=== PATIENT | male | born 1975 | race American Indian/Alaskan Native ===

== ENCOUNTER 2017-10-26 05:45 | Day surgery (SDC) | payer BC, OTHER ==
[~2017-10-26] VITALS: Ht 188 cm; Wt 136.1 kg
[~2017-10-26 05:45] MED LIST: AMLODIPINE BESYL5 MG PO; ASPIR-LOW81 MG PO; GLIPIZIDE XL10 MG PO; JANUVIA100 MG PO; LIPITOR20 MG PO; LISINOPRIL40 MG PO; METFORMIN HCL1000 MG PO; NAPROXEN250 MG PO; VITAMIN D250000 UNIT PO
--- NOTE | 2017-10-26 07:29 | NUR ---
10/26/17 0729 ChanceKayleigh 0718-PATIENTS BILATERAL MANIPULATION TO SHOULDERS COMPLETED. PATIENT ON 6L MASK O2 SAT 100% RN HELPING TO MAINTAIN OPEN AIRWAY. PATIENT NONAROUSABLE. 2 BANDAIDS TO BILATERAL SHOULDERS. 0727-PATIENT AROUSABLE. WEANED TO RA O2 SAT 100% PATIENT REPORTS " A LITTLE DISCOMFORT" PATIENT ABLE TO MOVE RIGHT HAND HAS DIFFICULTY RAISING RIGHT ARM BLOCK WAS DONE. REPORTS "HEAVY" PATIENT DOZES BACK TO SLEEP. RR EVEN.
--- NOTE | 2017-10-26 09:34 | OR ---
[facility] [address] [facility] [place], [place] [address] Signed DATE OF OPERATION: 10/26/2017 SURGEON: Herber Arredondo MD PREOPERATIVE DIAGNOSIS: Bilateral frozen shoulders. POSTOPERATIVE DIAGNOSIS: Bilateral frozen shoulders. PROCEDURE: Bilateral shoulder manipulations and injection. ANESTHESIA: General. SPECIMENS AND COMPLICATIONS: IV sedation in Day Surgery. WHAT WAS DONE: The patient was taken to the operating room. After anesthesia was induced and the patient sedated with propofol and a right-sided supraclavicular block performed, the right arm was gently manipulated into flexion and abduction and external rotation. There was a rather significant sound of releasing tissues as the shoulder was manipulated and he quickly went into full range of motion. A documentary photograph was taken and the shoulder was then prepped and injected with 8 mL of 1% plain Xylocaine and 2 mL of Depo-Medrol. He then was redosed with propofol and the left shoulder was similarly manipulated into flexion and abduction and external rotation again with a rather resounding sound of releasing scar tissue and adhesions. Again, we regained full range of motion and a documentary photograph was taken. The shoulder was then prepped and the left shoulder was also injected with 8 mL of 1% plain Xylocaine and 2 mL of Depo-Medrol. Band-Aid was applied and he was awakened. He was left in Day Surgery where he was in stable condition. Herber Arredondo MD Electronically Signed By: HERBER ARREDONDO MD 10/26/17 0934 PATIENT NAME: STEVE TORRES OPERATIVE REPORT DATE OF : 71 REPORT #: [id number] PHYSICIAN: HERBER ARREDONDO MD PCP: LEONIDES YOUNGER MD REPORT IS CONFIDENTIAL AND NOT TO BE RELEASED WITHOUT AUTHORIZATION [facility] [address] [place] [id number] Signed [facility] /[id number] Copies: ~ Electronically Signed By: HERBER ARREDONDO MD 10/26/17 0934 PATIENT NAME: STEVE TORRES OPERATIVE REPORT DATE OF : 71 REPORT #: [id number] PHYSICIAN: HERBER ARREDONDO MD PCP: LEONIDES YOUNGER MD REPORT IS CONFIDENTIAL AND NOT TO BE RELEASED WITHOUT AUTHORIZATION
== END 2017-10-26 08:45 | disposition home or self-care (01) ==
LOC: OPS 05:45 → DS 05:45 → OPS 06:45 → DS 07:30 → OPS 07:30
PROVIDERS: Orthopaedic Surgery
PROC: 0RNJXZZ Release Right Shoulder Joint, External Approach (ICD-10-PCS; 2017-10-26)
PROC: 0RNKXZZ Release Left Shoulder Joint, External Approach (ICD-10-PCS; principal; 2017-10-26 06:45)
DX: M75.01 Adhesive capsulitis of right shoulder (principal); M75.02 Adhesive capsulitis of left shoulder; E11.9 Type 2 diabetes mellitus without complications; I10 Essential (primary) hypertension; F17.210 Nicotine dependence, cigarettes, uncomplicated; E66.9 Obesity, unspecified; Z88.0 Allergy status to penicillin; Z79.1 Long term (current) use of non-steroidal anti-inflammatories (NSAID); Z79.84 Long term (current) use of oral hypoglycemic drugs; Z79.82 Long term (current) use of aspirin; Z79.899 Other long term (current) drug therapy; Z68.38 Body mass index [BMI] 38.0-38.9, adult
CPT/HCPCS: 01620; 64415; 76942; J1100; J2250; J2704; J2795; J3010; J3301; J7120

== ENCOUNTER 2019-12-18 15:01 | Inpatient (IN) | payer BC, OTHER ==
[~2019-12-18] VITALS: Ht 188 cm; Wt 137.0 kg
--- OUTSIDE RECORDS SUMMARY | ~2019-12-18 | XMS | Encounter Summary ---
Demographics + + + | Address | [address] | | | [place] [address] | + + + | Home Phone | | + + + | Preferred Language | Unknown | + + + | Marital Status | | + + + | Temple Affiliation | Unknown | + + + | Race | Unknown | + + + | Ethnic Group | Unknown | + + + Author + + + | Author | [facility] | | | and [place] | + + + | Organization | [facility] | | | and [place] | + + + | Address | Unknown | + + + | Phone | Unavailable | + + + Support + + + + + | Name | Relationship | Address | Phone | + + + + + | Zofia Galloway | ECON | [address] | | | | | [place] | | | | | [address] | | + + + + + | Bernarda Galloway | ECON | Unknown | | + + + + + Care Team Providers + +------+ + | Care Piano Builder Name | Role | Phone | + +------+ + | Mateo Duarte DO | PCP | | + +------+ + Encounter Details +--------+ + + + + | Date | Type | Department | Care Team | Description | +--------+ + + + + | 08/10/ | Orders Only | [facility] [place] | Gilma Helms W, | CKD (chronic kidney | | 2020 | | NEPHROLOGY [address] | [address] | disease) stage 2, | | | | [address] | [address] [place] | GFR 60-89 ml/min | | | | [place], [place] | [place] [address] | (Primary Dx); | | | | [address] | [phone] | Proteinuria, | | | | [phone] | | unspecified type | +--------+ + + + + Social History + + + +--------+ + | Tobacco Use | Types | Packs/Day | Years | Date | | | | | Used | | + + + +--------+ + | Current Every Day | Cigarettes | 0.75 | | Started: 1998 | | Smoker | | | | | + + + +--------+ + + +---+---+---+ | Smokeless Tobacco: | | | | | Never Used | | | | + +---+---+---+ + + + | Sex Assigned at | Date Recorded | | | | + + + | Not on file | | + + + + + + + | Job Start Date | Occupation | Industry | + + + + | Not on file | Not on file | Not on file | + + + + + + + + | Travel History | Travel Start | Travel End | + + + + + + | No recent travel history available. | + + documented as of this encounter Progress Notes Mandy Woodruff RN - 08/10/2019 10:11 AM PSTLabs for upcoming nephrology appointment sent to: [facility] signed by Mandy Woodruff RN at 08/10/2019 10:13 AM PSTdocumented in this encounter Plan of Treatment +--------+---------+ + + + | Date | Type | Specialty | Care Team | Description | +--------+---------+ + + + | 01/08/ | Office | Nephrology | Gilma Helms, | | 2019 | Visit | | MD Brandon Bermeo | | | | | | [address] [place] | | | | | | [place] [address] | | | | | | [phone] | | | | | | | | +--------+---------+ + + + + +------+--------+ + + | Name | Type | Priori | Associated Diagnoses | Order Schedule | | | | ty | | | + +------+--------+ + + | Renal Function Panel | Lab | Routin | CKD (chronic | Expected: | | | | e | kidney disease) | 08/29/2019, Expires: | | | | | stage 2, GFR 60-89 | 08/10/2020 | | | | | ml/min Proteinuria, | | | | | | unspecified type | | + +------+--------+ + + | Urinalysis With | Lab | Routin | CKD (chronic | Expected: | | Microscopic | | e | kidney disease) | 08/29/2019, Expires: | | | | | stage 2, GFR 60-89 | 08/10/2020 | | | | | ml/min Proteinuria, | | | | | | unspecified type | | + +------+--------+ + + | Protein/Creatinine | Lab | Routin | CKD (chronic | Expected: | | Ratio, Urine | | e | kidney disease) | 08/29/2019, Expires: | | | | | stage 2, GFR 60-89 | 08/10/2020 | | | | | ml/min Proteinuria, | | | | | | unspecified type | | + +------+--------+ + + documented as of this encounter Visit Diagnoses + + | Diagnosis | + + | CKD (chronic kidney disease) stage 2, GFR 60-89 ml/min - Primary Chronic kidney | | disease, Stage II (mild) | + + | Proteinuria, unspecified type | + + documented in this encounter"
--- OUTSIDE RECORDS SUMMARY | ~2019-12-18 | XMS | Encounter Summary ---
Demographics + + + | Address | [address] | | | [place] [address] | + + + | Home Phone | | + + + | Preferred Language | Unknown | + + + | Marital Status | | + + + | Mormon Affiliation | Unknown | + + + | Race | Unknown | + + + | Ethnic Group | Unknown | + + + Author + + + | Author | [facility] | | | and [place] | + + + | Organization | [facility] | | | and [place] | + + + | Address | Unknown | + + + | Phone | Unavailable | + + + Support + + + + + | Name | Relationship | Address | Phone | + + + + + | Zofia Galloway | ECON | [address] | | | | | [place] | | | | | [address] | | + + + + + | Bernarda Galloway | ECON | Unknown | | + + + + + Care Team Providers + +------+ + | Care Surveillance Operator Name | Role | Phone | + +------+ + PCP | Unavailable | + +------+ + Encounter Details +--------+ + + + + | Date | Type | Department | Care Team | Description | +--------+ + + + + | 02/10/ | Hospital | [facility] | | | | 1998 | Encounter | MED CTR GENERIC IP | | | | | | CONV DEPT [address] | | | | | | [place], | | | | | | [place] [address] | | | | | | [phone] | | | +--------+ + + + + Social History + +-------+ +--------+------+ | Tobacco Use | Types | Packs/Day | Years | Date | | | | | Used | | + +-------+ +--------+------+ | Never Assessed | | | | | + +-------+ +--------+------+ + + + | Sex Assigned at [...] + + documented as of this encounter Plan of Treatment +--------+---------+ + + + | Date | Type | Specialty | Care Team | Description | +--------+---------+ + + + | 01/08/ | Office | Nephrology | Gilma Helms, | | | 2019 | Visit | | MD Brandon Bermeo | | | | | | [address] [place] | | | | | | [place] [address] | | | | | | [phone] | | | | | | | | +--------+---------+ + + + documented as of this encounter Visit Diagnoses Not on filedocumented in this encounter"
--- OUTSIDE RECORDS SUMMARY | ~2019-12-18 | XMS | Encounter Summary ---
Demographics + + + | Address | [address] | | | [place] [address] | + + + | Home Phone | | + + + | Preferred Language | Unknown | + + + | Marital Status | | + + + | Sikhism Affiliation | Unknown | + + + | Race | Unknown | + + + | Ethnic Group | Unknown | + + + Author + + + | Author | [facility] | | | and [place] | + + + | Organization | [facility] | | | and [place] | + + + | Address | Unknown | + + + | Phone | Unavailable | + + + Support + + + + + | Name | Relationship | Address | Phone | + + + + + | Zofia Galloway | ECON | [address] | | | | | [place] | | | | | [address] | | + + + + + | Bernarda Galloway | ECON | Unknown | | + + + + + Care Team Providers + +------+ + | Care Adjunct Mathematics Instructor Name | Role | Phone | + +------+ + | Mateo Duarte DO | PCP | | + +------+ + Encounter Details +--------+ + + + + | Date | Type | Department | Care Team | Description | +--------+ + + + + | 08/15/ | Abstract | [facility] [place] | Gilma Helms W, | Proteinuria, | | 2018 | | NEPHROLOGY [address] | MD [address] | unspecified type | | | | [address] | [address] [place] | (Primary Dx); | | | | [place], [place] | [place] [address] | Essential | | | | [address] | [phone] | hypertension; Type 2 | | | | [phone] | | diabetes mellitus | | | | | | with | | | | | | microalbuminuria, | | | | | | with long-term | | | | | | current use of | | | | | | insulin (HCC) | +--------+ + + + + Social History + +-------+ +--------+------+ | Tobacco Use | Types | Packs/Day | Years | Date | | | | | Used | | + +-------+ +--------+------+ | Current Every Day | | | | | | Smoker | | | | | + +-------+ +--------+------+ + +---+---+---+ | Smokeless Tobacco: | | [...] encounter Progress Notes Mandy Woodruff RN - 08/15/2018 3:39 PM PSTLabs for upcoming nephrology appointment sent to: Needs to be [facility] to [facility] by Mandy Woodruff RN at 0 08/15/2018 3:47 PM PSTdocumented in this encounter Plan of Treatment +--------+---------+ + + + | Date | Type | Specialty | Care Team | Description | +--------+---------+ + + + | 01/08/ | Office | Nephrology | Gilma Helms, | | | 2019 | Visit | | MD Brandon Bermeo | | | | | | [address] | | | | | | [place] [address] | | | | | | [phone] | | | | | | | | +--------+---------+ + + + documented as of this encounter Visit Diagnoses + + | Diagnosis | + + | Proteinuria, unspecified type - Primary | + + | Essential hypertension Unspecified essential hypertension | + + | Type 2 diabetes mellitus with microalbuminuria, with long-term current use of insulin | | (HCC) | + + documented in this encounter"
--- OUTSIDE RECORDS SUMMARY | ~2019-12-18 | XMS | Encounter Summary ---
Demographics + + + | Address | [address] | | | [place] [address] | + + + | Home Phone | | + + + | Preferred Language | Unknown | + + + | Marital Status | | + + + | Taoist Affiliation | Unknown | + + + | Race | Unknown | + + + | Ethnic Group | Unknown | + + + Author + + + | Author | [facility] | | | and [place] | + + + | Organization | [facility] | | | and [place] | + + + | Address | Unknown | + + + | Phone | Unavailable | + + + Support + + + + + | Name | Relationship | Address | Phone | + + + + + | Zofia Galloway | ECON | [address] | | | | | [place] | | | | | [address] | | + + + + + | Bernarda Galloway | ECON | Unknown | | + + + + + Care Team Providers + +------+ + | Care Coal Dumping Equipment Operator Name | Role | Phone | + +------+ + | Mateo Duarte DO | PCP | | + +------+ + Encounter Details +--------+ + + + + | Date | Type | Department | Care Team | Description | +--------+ + + + + | 08/04/ | Abstract | [facility] [place] | Gilma Helms W, | | | 2018 | | NEPHROLOGY [address] | MD [address] | | | | | [address] | [address] [place] | | | | | [place], [place] | [place] [address] | | | | | [address] | [phone] | | | | | [phone] | | | +--------+ + + + [...] | | 2019 | Visit | | [address] | | | | | | [address] [place] | | | | | | [place] [address] | | | | | | [phone] | | | | | | | | +--------+---------+ + + + documented as of this encounter Procedures + +--------+ + + + | Procedure Name | Priori | Date/Time | Associated Diagnosis | Comments | | | ty | | | | + +--------+ + + + | EXTERNAL LAB: BUN | Routin | 07/15/2018 | | Results for this | | | e | | | procedure are in the | | | | | | results section. | + +--------+ + + + | EXTERNAL LAB: | Routin | 07/15/2018 | | Results for this | | GLUCOSE | e | | | procedure are in the | | | | | | results section. | + +--------+ + + + | EXTERNAL LAB: ALT | Routin | 07/15/2018 | | Results for this | | | e | | | procedure are in the | | | | | | results section. | + +--------+ + + + | EXTERNAL LAB: AST | Routin | 07/15/2018 | | Results for this | | | e | | | procedure are in the | | | | | | results section. | + +--------+ + + + | EXTERNAL LAB: | Routin | 07/15/2018 | | Results for this | | ALKALINE PHOSPHATASE | e | | | procedure are in the | | | | | | results section. | + +--------+ + + + | EXTERNAL LAB: | Routin | 07/15/2018 | | Results for this | | BILIRUBIN, TOTAL | e | | | procedure are in the | | | | | | results section. | + +--------+ + + + | EXTERNAL LAB: | Routin | 07/15/2018 | | Results for this | | ALBUMIN | e | | | procedure are in the | | | | | | results section. | + +--------+ + + + | EXTERNAL LAB: | Routin | 07/15/2018 | | Results for this | | PROTEIN, TOTAL | e | | | procedure are in the | | | | | | results section. | + +--------+ + + + | EXTERNAL LAB: | Routin | 07/15/2018 | | Results for this | | CALCIUM | e | | | procedure are in the | | | | | | results section. | + +--------+ + + + | EXTERNAL LAB: CARBON | Routin | 07/15/2018 | | Results for this | | DIOXIDE | e | | | procedure are in the | | | | | | results section. | + +--------+ + + + | EXTERNAL LAB: | Routin | 07/15/2018 | | Results for this | | CHLORIDE | e | | | procedure are in the | | | | | | results section. | + +--------+ + + + | EXTERNAL LAB: | Routin | 07/15/2018 | | Results for this | | POTASSIUM | e | | | procedure are in the | | | | | | results section. | + +--------+ + + + | EXTERNAL LAB: SODIUM | Routin | 07/15/2018 | | Results for this | | | e | | | procedure are in the | | | | | | results section. | + +--------+ + + + | EXTERNAL LAB: | Routin | 07/15/2018 | | Results for this | | VITAMIN D, | e | | | procedure are in the | | 25-HYDROXY | | | | results section. | + +--------+ + + + | EXTERNAL LAB: | Routin | 07/15/2018 | | Results for this | | URINALYSIS | e | | | procedure are in the | | | | | | results section. | + +--------+ + + + | EXTERNAL LAB: CBC | Routin | 07/15/2018 | | Results for this | | | e | | | procedure are in the | | | | | | results section. | + +--------+ + + + | EXTERNAL LAB: TSH | Routin | 07/15/2018 | | Results for this | | | e | | | procedure are in the | | | | | | results section. | + +--------+ + + + | EXTERNAL LAB: EGFR | Routin | 07/15/2018 | | Results for this | | | e | | | procedure are in the | | | | | | results section. | + +--------+ + + + | EXTERNAL LAB: | Routin | 07/15/2018 | | Results for this | | CREATININE | e | | | procedure are in the | | | | | | results section. | + +--------+ + + + | HEMOGLOBIN A1C | Routin | 07/15/2018 | | Results for this | | | e | | | procedure are in the | | | | | | results section. | + +--------+ + + + documented in this encounter Results External Lab: Urinalysis (07/15/2018) + + + + + + | Component | Value | Ref Range | Performed | Pathologist | | | | | At | Signature | + + + + + + | UA Blood, | 50 | | | | | External | | | | | + + + + + + | UA Glucose, | 1,000 | | | | | External | | | | | + + + + + + | UA Ketones, | 1+ | | | | | External | | | | | + + + + + + | UA Ph, | 5.0 | | | | | External | | | | | + + + + + + | UA | 500 | | | | | Proteins, | | | | | | External | | | | | + + + + + + | UA RBC, | 3 | | | | | External | | | | | + + + + + + | UA Specific | 1.029 | | | | | [place], | | | | | | External | | | | | + + + + + + | UA | negative | | | | | Leukocyte | | | | | | Esterase, | | | | | | External | | | | | + + + + + + Hemoglobin A1C (07/15/2018) + +-------+ + + + | Component | Value | Ref Range | Performed | Pathologist | | | | | At | Signature | + +-------+ + + + | Hemoglobin | 9.5 | % | | | | A1c | | | | | + +-------+ + + + + + | Specimen | + + | Blood | + + External Lab: BUN (07/15/2018) + +-------+ + + + | Component | Value | Ref Range | Performed | Pathologist | | | | | At | Signature | + +-------+ + + + | BUN, | 4 | | | | | External | | | | | + +-------+ + + + External Lab: Glucose (07/15/2018) + +-------+ + + + | Component | Value | Ref Range | Performed | Pathologist | | | | | At | Signature | + +-------+ + + + | Glucose, | 202 | | | | | External | | | | | + +-------+ + + + External Lab: ALT (07/15/2018) + +-------+ + + + | Component | Value | Ref Range | Performed | Pathologist | | | | | At | Signature | + +-------+ + + + | ALT, | 42 | | | | | External | | | | | + +-------+ + + + External Lab: AST (07/15/2018) + +-------+ + + + | Component | Value | Ref Range | Performed | Pathologist | | | | | At | Signature | + +-------+ + + + | AST, | 32 | | | | | External | | | | | + +-------+ + + + External Lab: Alkaline Phosphatase (07/15/2018) + +-------+ + + + | Component | Value | Ref Range | Performed | Pathologist | | | | | At | Signature | + +-------+ + + + | ALP, | 97 | | | | | External | | | | | + +-------+ + + + External Lab: Bilirubin, Total (07/15/2018) + +-------+ + + + | Component | Value | Ref Range | Performed | Pathologist | | | | | At | Signature | + +-------+ + + + | Bilirubin, | 0.5 | | | | | Total, | | | | | | External | | | | | + +-------+ + + + External Lab: Albumin (07/15/2018) + +-------+ + + + | Component | Value | Ref Range | Performed | Pathologist | | | | | At | Signature | + +-------+ + + + | Albumin, | 4.0 | | | | | External | | | | | + +-------+ + + + External Lab: Protein, Total (07/15/2018) + +-------+ + + + | Component | Value | Ref Range | Performed | Pathologist | | | | | At | Signature | + +-------+ + + + | Protein, | 7.0 | | | | | Total, | | | | | | External | | | | | + +-------+ + + + External Lab: Calcium (07/15/2018) + +-------+ + + + | Component | Value | Ref Range | Performed | Pathologist | | | | | At | Signature | + +-------+ + + + | Calcium, | 9.1 | | | | | External | | | | | + +-------+ + + + External Lab: Carbon Dioxide (07/15/2018) + +-------+ + + + | Component | Value | Ref Range | Performed | Pathologist | | | | | At | Signature | + +-------+ + + + | Carbon | 27 | | | | | Dioxide, | | | | | | External | | | | | + +-------+ + + + External Lab: Chloride (07/15/2018) + +-------+ + + + | Component | Value | Ref Range | Performed | Pathologist | | | | | At | Signature | + +-------+ + + + | Chloride, | 98 | | | | | External | | | | | + +-------+ + + + External Lab: Potassium (07/15/2018) + +-------+ + + + | Component | Value | Ref Range | Performed | Pathologist | | | | | At | Signature | + +-------+ + + + | Potassium, | 4.1 | | | | | External | | | | | + +-------+ + + + External Lab: Sodium (07/15/2018) + +-------+ + + + | Component | Value | Ref Range | Performed | Pathologist | | | | | At | Signature | + +-------+ + + + | Sodium, | 139 | | | | | External | | | | | + +-------+ + + + External Lab: Vitamin D, 25-Hydroxy (07/15/2018) + +-------+ + + + | Component | Value | Ref Range | Performed | Pathologist | | | | | At | Signature | + +-------+ + + + | Vitamin D, | 31.6 | | | | | 25-Hydroxy, | | | | | | External | | | | | + +-------+ + + + + + | Specimen | + + | Blood | + + External Lab: CBC (07/15/2018) + +-------+ + + + | Component | Value | Ref Range | Performed | Pathologist | | | | | At | Signature | + +-------+ + + + | WBC, | 11.29 | | | | | External | | | | | + +-------+ + + + | HGB, | 15.83 | | | | | External | | | | | + +-------+ + + + | HCT, | 45.32 | | | | | External | | | | | + +-------+ + + + | PLT, | 240 | | | | | External | | | | | + +-------+ + + + | RBC, | 4.89 | | | | | External | | | | | + +-------+ + + + | MCV, | 93 | | | | | External | | | | | + +-------+ + + + | RDW, | 13.39 | | | | | External | | | | | + +-------+ + + + External Lab: [facility] (07/15/2018) + +-------+ + + + | Component | Value | Ref Range | Performed | Pathologist | | | | | At | Signature | + +-------+ + + + | TSH, | 0.05 | | | | | External | | | | | + +-------+ + + + + + | Specimen | + + | Blood | + + External Lab: eGFR (07/15/2018) + +-------+ + + + | Component | Value | Ref Range | Performed | Pathologist | | | | | At | Signature | + +-------+ + + + | eGFR, | >60 | | | | | External | | | | | + +-------+ + + + + + | Specimen | + + | Blood | + + External Lab: Creatinine (07/15/2018) + +-------+ + + + | Component | Value | Ref Range | Performed | Pathologist | | | | | At | Signature | + +-------+ + + + | Creatinine, | 0.80 | | | | | External | | | | | + +-------+ + + + + + | Specimen | + + | Blood | + + documented in this encounter Visit Diagnoses Not on filedocumented in this encounter"
--- OUTSIDE RECORDS SUMMARY | ~2019-12-18 | XMS | Encounter Summary ---
Demographics + + + | Address | [address] | | | [place] [address] | + + + | Home Phone | | + + + | Preferred Language | Unknown | + + + | Marital Status | | + + + | Faith Affiliation | Unknown | + + + | Race | Unknown | + + + | Ethnic Group | Unknown | + + + Author + + + | Author | [facility] | | | and [place] | + + + | Organization | [facility] | | | and [place] | + + + | Address | Unknown | + + + | Phone | Unavailable | + + + Support + + + + + | Name | Relationship | Address | Phone | + + + + + | Zofia Galloway | ECON | [address] | | | | | [place] | | | | | [address] | | + + + + + | Bernarda Galloway | ECON | Unknown | | + + + + + Care Team Providers + +------+ + | Care Pilot Plant Supervisor Name | Role | Phone | + +------+ + | Mateo Duarte DO | PCP | | + +------+ + Reason for Visit + + + | Reason | Comments | + + + | Consultation | | + + + | Proteinuria | | + + + Evaluate & Treat (Routine) +--------+--------+ + + + + | Status | Reason | Specialty | Diagnoses / | Referred By | Referred To | | | | | Procedures | Contact | Contact | +--------+--------+ + + + + | Closed | | Nephrology | Diagnoses | [place], | Helms, | | | | | Proteinuria | Mateo M, DO | Gilma W, | | | | | HTN | [address] | MD [address] | | | | (hypertensio | [address] | [place] | | | | | n) DM type | [place], | [address] [place] | | | | | 2 (diabetes | [place] [address] | [place], [place] | | | | | mellitus, | Phone: | [phone] Phone: | | | | | type 2) | [phone] | [phone] | | | | | (HCC) | Fax: | Fax: | | | | | Procedures | [phone] | [phone] | | | | | NC OFFICE | | | | | | | OUTPATIENT | | | | | | | VISIT 25 | | | | | | | MINUTES | | | +--------+--------+ + + + + Encounter Details +--------+---------+ + + + | Date | Type | Department | Care Team | Description | +--------+---------+ + + + | 02/28/ | Office | [facility] | Gilma Helms W, | CKD (chronic kidney | | 2019 | Visit | NEPHROLOGY [address] | disease) stage 2, | | | | [address] | [address] [place] | GFR 60-89 ml/min | | | | [address] [place] | [place] [address] | (Primary Dx); Type 2 | | | | [address] | [phone] | diabetes mellitus | | | | [phone] | | with stage 2 chronic | | | | | | kidney disease, | | | | | | without long-term | | | | | | current use of | | | | | | insulin (HCC); | | | | | | Proteinuria, | | | | | | unspecified type; | | | | | | Essential | | | | | | hypertension; | | | | | | Tobacco use | +--------+---------+ + + + Social History + + + +--------+ + | Tobacco Use | Types | Packs/Day | Years | Date | | | | | Used | | + + + +--------+ + | Current Every Day | Cigarettes | 0.75 | | Started: 1999 | | Smoker | | | | [...] + + documented as of this encounter Last Filed Vital Signs + + + + + | Vital Sign | Reading | Time Taken | Comments | + + + + + | Blood Pressure | 142/88 | 02/28/2019 2:11 PM | | | | | PDT | | + + + + + | Pulse | 70 | 02/28/2019 2:11 PM | | | | | PDT | | + + + + + | Temperature | 37 C (98.6 F) | 02/28/2019 2:11 PM | | | | | PDT | | + + + + + | Respiratory Rate | 16 | 02/28/2019 2:11 PM | | | | | PDT | | + + + + + | Oxygen Saturation | 97% | 02/28/2019 2:11 PM | | | | | PDT | | + + + + + | Inhaled Oxygen | - | - | | | Concentration | | | | + + + + + | Weight | 139.3 kg (307 lb 1.6 | 02/28/2019 2:11 PM | | | | oz) | PDT | | + + + + + | Height | 188 cm (6' 2") | 02/28/2019 2:11 PM | | | | | PDT | | + + + + + | Body Mass Index | 39.43 | 02/28/2019 2:11 PM | | | | | PDT | | + + + + + documented in this encounter Patient Instructions Patient Instructions Gilma Helms MD - 02/28/2019 2:00 PM PDTTo-do Start Labetalol 100 mg twice a day. This is a blood pressure lowering medication -- this w ill replace your amlodipine. You current kidney function calculates to 65%. This is considered stage 2 chronic kidney d isease (60-89%). Stop taking ibuprofen. documented in this encounter Progress Notes Gilma Helms MD - 02/28/2019 2:00 PM PDTFormatting of this note might be different f rom the original. Nephrology Consult - New Visit Visit date: 02/28/2019 Primary care provider: Unknown Referring provider: Mateo Duarte DO HPI: Jaxson Galloway is a 44 y.o. male referred by Mateo Duarte DO for evaluation of proteinuria. Pt was diagnosed with type 2 diabetes mellitus around 15 years ago. Pt is currently taking oral anti-hyperglycemic medications. Pt has long-acting insulin, but he is not taking it o n a regular basis; pt states he takes it about 4 times a week. Pt has his eyes examined [place], and pt reports no h/o diabetic retinopathy. Pt reports mild numbness on the bottom of his feet, but he feels this is more related to his back surgery in 1998. Pt recently established with endocrinology (Dr. Bennett). On routine testing, pt was noted to have a low TSH. Pt has f/u with Dr. Bennett to address this. Pt denies symptoms of hype rthyroidism -- palpitation, weight loss. Pt has h/o hypertension. Pt discontinued his amlodipine about 6-8 weeks ago, due to severe peripheral edema. Pt reports his edema completely resolved after he stopped the amlodipine . He is currently taking lisinopril 40 mg daily. Pt is a current tobacco smoker. Pt states he is not willing to quit at this time. Pt's father is a dialysis patient. 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 Renal ultrasound Date: 08/05/18 Right kidney 12.1 cm, left kidney 12.9 cm, no echogenicity, no hydronephrosis, no stones. ROS: A 10-system review was performed, and was negative or noncontributory other than as st ated above. PMH: Patient Active Problem List Diagnosis Date Noted CKD (chronic kidney disease) stage 2, GFR 60-89 ml/min 02/28/2019 Type 2 diabetes mellitus with stage 2 chronic kidney disease, without long-term current use of insulin (HCC) 02/28/2019 Proteinuria 02/28/2019 Essential hypertension 02/28/2019 Hyperlipidemia 02/28/2019 Tobacco use 02/28/2019 Past Surgical History: Procedure Laterality Date BACK SURGERY 02/10/1999 low back disk KNEE ARTHROSCOPY 08/12/2004 KNEE ARTHROSCOPY 12/01/2005 KNEE ARTHROSCOPY 12/16/2006 VASECTOMY 11/14/2015 Social History Socioeconomic History Marital status: Spouse name: Not on file Number of children: 5 Years of education: Not on file Highest education level: Not on file Social Needs Financial resource strain: Not on file Food insecurity - worry: Not on file Food insecurity - inability: Not on file Transportation needs - medical: Not on file Transportation needs - non-medical: Not on file Occupational History Not on file Tobacco Use Smoking status: Current Every Day Smoker Packs/day: 0.75 Types: Cigarettes Start date: 1998 Smokeless tobacco: Never Used Substance and Sexual Activity Alcohol use: Not on file Comment: seldom Drug use: Never Sexual activity: Not on file Other Topics Concern Not on file Social History Narrative Not on file Family History Problem Relation Age of Onset Kidney disease Father on dialysis Diabetes Father Allergies Allergen Reactions Amlodipine Swelling Clindamycin Unknown Outpatient Medications Marked as Taking for the 02/28/19 encounter (Office Visit) with Marlene Helms MD Medication Sig Dispense Refill aspirin 81 mg EC tablet Take 81 mg by mouth Daily. atorvaSTATin (LIPITOR) 20 mg tablet Take 20 mg by mouth nightly. ergocalciferol (VITAMIN D-2) 50,000 units capsule Take 50,000 Units by mouth Once a wee k. glipiZIDE (GLUCOTROL XL) 10 mg ER tablet Take 10 mg by mouth daily (with breakfast). ibuprofen (ADVIL, MOTRIN) 200 mg tablet Take 600 mg by mouth 2 times daily. LANTUS SOLOSTAR 100 UNIT/ML injection (pen) Inject 30 Units under the skin nightly as n eeded. lisinopril (PRINIVIL,ZESTRIL) 40 MG tablet Take 40 mg by mouth Daily. sildenafil (REVATIO) 20 mg tablet Take 40 mg by mouth as needed (60 minutes prior to se xual activity if needed). SITagliptin-metFORMIN (JANUMET) 50-1,000 mg per tablet Take 2 tablets by mouth Daily. Physical Exam Vitals: 02/28/19 1411 BP: 142/88 Pulse: 70 Resp: 16 Temp: 37 C (98.6 F) TempSrc: Temporal SpO2: 97% Weight: (!) 139.3 kg (307 lb 1.6 oz) Height: 1.88 m (6' 2") Body mass index is 39.43 kg/m. Constitutional: Appears well-developed and well-nourished. No distress. Cardiovascular: Normal rate, regular rhythm and normal heart sounds. No peripheral edema. Lungs: Respiratory effort normal and breath sounds normal. No crackles or wheezes. Abdominal: Soft. Bowel sounds are present. Musculoskeletal: No joint swelling. No muscle tenderness. Skin: Skin is warm. No rash over extremities. Neurological: Alert. Memory appears intact. Psychiatric: Normal mood and affect. Speech is normal. Reviewed labs with patient. Abstract on 02/23/2019 Component Date Value Ref Range Status Vitamin D, 25-Hydroxy, External 02/22/2019 33.8 Final Abstract on 02/23/2019 Component Date Value Ref Range Status Creatinine, External 02/22/2019 1.2 Final eGFR, External 02/22/2019 >60 Final WBC, External 02/22/2019 12.13 Final HGB, External 02/22/2019 15.18 Final HCT, External 02/22/2019 44.11 Final PLT, External 02/22/2019 253 Final RBC, External 02/22/2019 4.69 Final MCV, External 02/22/2019 94 Final RDW, External 02/22/2019 13.45 Final UA Blood, External 02/22/2019 50 Final UA Glucose, External 02/22/2019 50 Final UA Ketones, External 02/22/2019 1+ Final UA Ph, External 02/22/2019 5.0 Final UA Proteins, External 02/22/2019 500 Final UA RBC, External 02/22/2019 4 Final UA Specific [place], External 02/22/2019 1.026 Final UA Leukocyte Esterase, External 02/22/2019 negative Final Sodium, External 02/22/2019 139 Final Potassium, External 02/22/2019 3.8 Final Chloride, External 02/22/2019 102 Final Carbon Dioxide, External 02/22/2019 28 Final Calcium, External 02/22/2019 8.9 Final Phosphorus, External 02/22/2019 3.5 Final Protein, Total, External 02/22/2019 7.1 Final Albumin, External 02/22/2019 4.0 Final Bilirubin, Total, External 02/22/2019 0.6 Final ALP, External 02/22/2019 103 Final AST, External 02/22/2019 27 Final ALT, External 02/22/2019 35 Final Glucose, External 02/22/2019 235 Final BUN, External 02/22/2019 11 Final Protein/Creatinine Ratio, External 02/22/2019 1.655* 0.2 Final PTH Intact, External 02/22/2019 40.07 12 - 88 Final WBC UA 02/22/2019 0 /HPF Final Color 02/22/2019 Dark Yellow* Light Yellow, Yellow Final Clarity 02/22/2019 Clear Final Bacteria, UA 02/22/2019 negative Final SQUAMOUS EPITHELIAL UA 02/22/2019 0 /HPF Final Nitrite, Urine 02/22/2019 Negative Negative Final ASSESSMENT AND PLAN: ICD-10-CM ICD-9-CM 1. CKD (chronic kidney disease) stage 2, GFR 60-89 ml/min N18.2 585.2 Proteinuric CKD. Likely due to diabetic kidney disease. Based on current serum creatinine of 1.2 mg/dL, eGFR is 65 mL/min. UPCR is elevated at 1.7. Pt is on full dose lisinopril dose. -Advised pt to stop NSAID use -- this can worsen hypertension and proteinuria. -Need to improve glycemic and BP control. -Weight loss. -No indication for a kidney biopsy at this time. 2. Type 2 diabetes mellitus with stage 2 chronic kidney disease, without long-term current use of insulin (HCC) E11.22 250.40 Advised pt to review his glycemic control with endocrinol ogist. N18.2 585.2 3. Proteinuria, unspecified type R80.9 791.0 On lisinopril. 4. Essential hypertension I10 401.9 Goal BP is <130/<80. Pt is non-edematous. -Advised pt to quit tobacco. -Will do a trial of labetalol 100 mg BID, in addition to lisinopril 40 mg daily. 5. Tobacco use Z72.0 305.1 As above. -Will continue encourage pt to quit. Return in 6 months: renal, ua, upcr. documented in this encounter Plan of Treatment +--------+---------+ + + + | Date | Type | Specialty | Care Team | Description | +--------+---------+ + + + | 01/08/ | Office | Nephrology | Gilma Helms, | | | 2019 | Visit | | MD [address] | | | | | | [place] | | | | | | [place] [address] | | | | | | [phone] | | | | | | | | +--------+---------+ + + + documented as of this encounter Visit Diagnoses + + | Diagnosis | + + | CKD (chronic kidney disease) stage 2, GFR 60-89 ml/min - Primary Chronic kidney | | disease, Stage II (mild) | + + | Type 2 diabetes mellitus with stage 2 chronic kidney disease, without long-term | | current use of insulin (HCC) | + + | Proteinuria, unspecified type | + + | Essential hypertension Unspecified essential hypertension | + + | Tobacco use Tobacco use disorder | + + documented in this encounter
--- OUTSIDE RECORDS SUMMARY | ~2019-12-18 | XMS | Encounter Summary ---
Demographics + + + | Address | [address] | | | [place] [address] | + + + | Home Phone [...] | Organization | [facility] | | | and [place] | + + + | Address | Unknown | + + + | Phone | Unavailable | + + + Support + + + + + | Name | Relationship | Address | Phone | + + + + + | Zofia Galloway | ECON | [address] | | | | | [place] | | | | | [address] | | + + + + + | Bernarda Galloway | ECON | Unknown | | + + + + + Care Team Providers + +------+ + | Care Urban Forester Name | Role | Phone | + +------+ + | Mateo Duarte DO | PCP | | + +------+ + Encounter Details +--------+ + + + + | Date | Type | Department | Care Team | Description | +--------+ + + + + | 02/23/ | Abstract | [facility] [place] | Gilma Helms W, | | | 2018 | | NEPHROLOGY [address] | MD [address] | | | | | [address] | [address] [place] | | | | | [place], [place] | [place] [address] | | | | | [address] | [phone] | | | | | [phone] | | | +--------+ + + + [...] | | | | | | [place] [address] | | | | | | [phone] | | | | | | | | +--------+---------+ + + + documented as of this encounter Procedures + +--------+ + + + | Procedure Name | Priori | Date/Time | Associated Diagnosis | Comments | | | ty | | | | + +--------+ + + + | EXTERNAL LAB: BUN | Routin | 02/22/2019 | | Results for this | | | e | | | procedure are in the | | | | | | results section. | + +--------+ + + + | EXTERNAL LAB: | Routin | 02/22/2019 | | Results for this | | GLUCOSE | e | | | procedure are in the | | | | | | results section. | + +--------+ + + + | EXTERNAL LAB: ALT | Routin | 02/22/2019 | | Results for this | | | e | | | procedure are in the | | | | | | results section. | + +--------+ + + + | EXTERNAL LAB: AST | Routin | 02/22/2019 | | Results for this | | | e | | | procedure are in the | | | | | | results section. | + +--------+ + + + | EXTERNAL LAB: | Routin | 02/22/2019 | | Results for this | | ALKALINE PHOSPHATASE | e | | | procedure are in the | | | | | | results section. | + +--------+ + + + | EXTERNAL LAB: | Routin | 02/22/2019 | | Results for this | | BILIRUBIN, TOTAL | e | | | procedure are in the | | | | | | results section. | + +--------+ + + + | EXTERNAL LAB: | Routin | 02/22/2019 | | Results for this | | ALBUMIN | e | | | procedure are in the | | | | | | results section. | + +--------+ + + + | EXTERNAL LAB: | Routin | 02/22/2019 | | Results for this | | PROTEIN, TOTAL | e | | | procedure are in the | | | | | | results section. | + +--------+ + + + | EXTERNAL LAB: | Routin | 02/22/2019 | | Results for this | | PHOSPHORUS | e | | | procedure are in the | | | | | | results section. | + +--------+ + + + | EXTERNAL LAB: | Routin | 02/22/2019 | | Results for this | | CALCIUM | e | | | procedure are in the | | | | | | results section. | + +--------+ + + + | EXTERNAL LAB: CARBON | Routin | 02/22/2019 | | Results for this | | DIOXIDE | e | | | procedure are in the | | | | | | results section. | + +--------+ + + + | EXTERNAL LAB: | Routin | 02/22/2019 | | Results for this | | CHLORIDE | e | | | procedure are in the | | | | | | results section. | + +--------+ + + + | EXTERNAL LAB: | Routin | 02/22/2019 | | Results for this | | POTASSIUM | e | | | procedure are in the | | | | | | results section. | + +--------+ + + + | EXTERNAL LAB: SODIUM | Routin | 02/22/2019 | | Results for this | | | e | | | procedure are in the | | | | | | results section. | + +--------+ + + + | EXTERNAL LAB: | Routin | 02/22/2019 | | Results for this | | URINALYSIS | e | | | procedure are in the | | | | | | results section. | + +--------+ + + + | EXTERNAL LAB: PTH, | Routin | 02/22/2019 | | Results for this | | INTACT | e | | | procedure are in the | | | | | | results section. | + +--------+ + + + | EXTERNAL LAB: | Routin | 02/22/2019 | | Results for this | | PROTEIN/CREATININE | e | | | procedure are in the | | RATIO | | | | results section. | + +--------+ + + + | EXTERNAL LAB: CBC | Routin | 02/22/2019 | | Results for this | | | e | | | procedure are in the | | | | | | results section. | + +--------+ + + + | EXTERNAL LAB: EGFR | Routin | 02/22/2019 | | Results for this | | | e | | | procedure are in the | | | | | | results section. | + +--------+ + + + | EXTERNAL LAB: | Routin | 02/22/2019 | | Results for this | | CREATININE | e | | | procedure are in the | | | | | | results section. | + +--------+ + + + | URINALYSIS WITH | Routin | 02/22/2019 | | Results for this | | MICROSCOPIC | e | | | procedure are in the | | | | | | results section. | + +--------+ + + + documented in this encounter Results Urinalysis With Microscopic (02/22/2019) + + + + + + | Component | Value | Ref Range | Performed | Pathologist | | | | | At | Signature | + + + + + + | WBC UA | 0 | /HPF | | | + + + + + + | Color, | Dark Yellow (A) | Light Yellow, | | | | Urine | | Yellow | | | + + + + + + | Clarity | Clear | | | | + + + + + + | Bacteria, | negative | | | | | UA | | | | | + + + + + + | SQUAMOUS | 0 | /HPF | | | | EPITHELIAL | | | | | | UA | | | | | + + + + + + | Nitrite, | Negative | Negative | | | | Urine | | | | | + + + + + + + + | Specimen | + + | Urine | + + External Lab: PTH, Intact (02/22/2019) + +-------+ + + + | Component | Value | Ref Range | Performed | Pathologist | | | | | At | Signature | + +-------+ + + + | PTH Intact, | 40.07 | 12 - 88 | | | | External | | | | | + +-------+ + + + + + | Specimen | + + | | + + External Lab: Protein/Creatinine Ratio (02/22/2019) + + + + + + | Component | Value | Ref Range | Performed | Pathologist | | | | | At | Signature | + + + + + + | Protein/Cre | 1.655 (A) | 0.2 | | | | atinine | | | | | | Ratio, | | | | | | External | | | | | + + + + + + + + | Specimen | + + | | + + External Lab: BUN (02/22/2019) + +-------+ + + + | Component | Value | Ref Range | Performed | Pathologist | | | | | At | Signature | + +-------+ + + + | BUN, | 11 | | | | | External | | | | | + +-------+ + + + External Lab: Glucose (02/22/2019) + +-------+ + + + | Component | Value | Ref Range | Performed | Pathologist | | | | | At | Signature | + +-------+ + + + | Glucose, | 235 | | | | | External | | | | | + +-------+ + + + External Lab: ALT (02/22/2019) + +-------+ + + + | Component | Value | Ref Range | Performed | Pathologist | | | | | At | Signature | + +-------+ + + + | ALT, | 35 | | | | | External | | | | | + +-------+ + + + External Lab: AST (02/22/2019) + +-------+ + + + | Component | Value | Ref Range | Performed | Pathologist | | | | | At | Signature | + +-------+ + + + | AST, | 27 | | | | | External | | | | | + +-------+ + + + External Lab: Alkaline Phosphatase (02/22/2019) + +-------+ + + + | Component | Value | Ref Range | Performed | Pathologist | | | | | At | Signature | + +-------+ + + + | ALP, | 103 | | | | | External | | | | | + +-------+ + + + External Lab: Bilirubin, Total (02/22/2019) + +-------+ + + + | Component | Value | Ref Range | Performed | Pathologist | | | | | At | Signature | + +-------+ + + + | Bilirubin, | 0.6 | | | | | Total, | | | | | | External | | | | | + +-------+ + + + External Lab: Albumin (02/22/2019) + +-------+ + + + | Component | Value | Ref Range | Performed | Pathologist | | | | | At | Signature | + +-------+ + + + | Albumin, | 4.0 | | | | | External | | | | | + +-------+ + + + External Lab: Protein, Total (02/22/2019) + +-------+ + + + | Component | Value | Ref Range | Performed | Pathologist | | | | | At | Signature | + +-------+ + + + | Protein, | 7.1 | | | | | Total, | | | | | | External | | | | | + +-------+ + + + External Lab: Phosphorus (02/22/2019) + +-------+ + + + | Component | Value | Ref Range | Performed | Pathologist | | | | | At | Signature | + +-------+ + + + | Phosphorus, | 3.5 | | | | | External | | | | | + +-------+ + + + External Lab: Calcium (02/22/2019) + +-------+ + + + | Component | Value | Ref Range | Performed | Pathologist | | | | | At | Signature | + +-------+ + + + | Calcium, | 8.9 | | | | | External | | | | | + +-------+ + + + External Lab: Carbon Dioxide (02/22/2019) + +-------+ + + + | Component | Value | Ref Range | Performed | Pathologist | | | | | At | Signature | + +-------+ + + + | Carbon | 28 | | | | | Dioxide, | | | | | | External | | | | | + +-------+ + + + External Lab: Chloride (02/22/2019) + +-------+ + + + | Component | Value | Ref Range | Performed | Pathologist | | | | | At | Signature | + +-------+ + + + | Chloride, | 102 | | | | | External | | | | | + +-------+ + + + External Lab: Potassium (02/22/2019) + +-------+ + + + | Component | Value | Ref Range | Performed | Pathologist | | | | | At | Signature | + +-------+ + + + | Potassium, | 3.8 | | | | | External | | | | | + +-------+ + + + External Lab: Sodium (02/22/2019) + +-------+ + + + | Component | Value | Ref Range | Performed | Pathologist | | | | | At | Signature | + +-------+ + + + | Sodium, | 139 | | | | | External | | | | | + +-------+ + + + External Lab: Urinalysis (02/22/2019) + + + + + + | Component | Value | Ref Range | Performed | Pathologist | | | | | At | Signature | + + + + + + | UA Blood, | 50 | | | | | External | | | | | + + + + + + | UA Glucose, | 50 | | | | | [...] + + + | UA RBC, | 4 | | | | | External | | | | | + + + + + + | UA Specific | 1.026 | | | | | [place], | | | | | | External | | | | | + + + + + + | UA | negative | | | | | Leukocyte | | | | | | Esterase, | | | | | | External | | | | | + + + + + + External Lab: BHARATH (02/22/2019) + +-------+ + + + | Component | Value | Ref Range | Performed | Pathologist | | | | | At | Signature | + +-------+ + + + | WBC, | 12.13 | | | | | External | | | | | + +-------+ + + + | HGB, | 15.18 | | | | | External | | | | | + +-------+ + + + | HCT, | 44.11 | | | | | External | | | | | + +-------+ + + + | PLT, | 253 | | | | | External | | | | | + +-------+ + + + | RBC, | 4.69 | | | | | External | | | | | + +-------+ + + + | MCV, | 94 | | | | | External | | | | | + +-------+ + + + | RDW, | 13.45 | | | | | External | | | | | + +-------+ + + + External Lab: eGFR (02/22/2019) + +-------+ + + + | Component [...] Blood | + + External Lab: Creatinine (02/22/2019) + +-------+ + + + | Component | Value | Ref Range | Performed | Pathologist | | | | | At | Signature | + +-------+ + + + | Creatinine, | 1.2 | | | | | External | | | | | + +-------+ + + + + + | Specimen | + + | Blood | + + documented in this encounter Visit Diagnoses Not on filedocumented in this encounter"
--- OUTSIDE RECORDS SUMMARY | ~2019-12-18 | XMS | Clinical Summary ---
Demographics + + + | Address | [address] | | | [place] [address] | + + + | Home Phone | | + + + | Preferred Language | Unknown | + + + | Marital Status | | + + + | Druze Affiliation | Unknown | + + + | Race | Unknown | + + + | Ethnic Group | Unknown | + + + Author + + + | Author | [facility] | | | and [place] | + + + | Organization | [facility] | | | and [place] | + + + | Address | Unknown | + + + | Phone | Unavailable | + + + Support + + + + + | Name | Relationship | Address | Phone | + + + + + | Zofia Galloway | ECON | [address] | | | | | [place] | | | | | [address] | | + + + + + | Bernarda Galloway | ECON | Unknown | | + + + + + Care Team Providers + +------+ + | Care Envelope Stuffer Name | Role | Phone | + +------+ + | Mateo Duarte DO | PCP | | + +------+ + Allergies + + + + + + | Active Allergy | Reactions | Severity | Noted | Comments | | | | | Date | | + + + + + + | Amlodipine | Swelling | | 02/29/20 | | | | | | 19 | | + + + + + + | Clindamycin | Unknown | | 02/29/20 | | | | | | 19 | | + + + + + + Medications + + + +---------+------+------+-------+ | Medication | Sig | Dispensed | Refills | Star | End | Statu | | | | | | t | Date | s | | | | | | Date | | | + + + +---------+------+------+-------+ | aspirin 81 mg EC | Take 81 mg by mouth | | 0 | | | Activ | | tablet | Daily. | | | | | e | + + + +---------+------+------+-------+ | atorvaSTATin | Take 20 mg by mouth | | 0 | | | Activ | | (LIPITOR) 20 mg | nightly. | | | | | e | | tablet | | | | | | | + + + +---------+------+------+-------+ | ergocalciferol | Take 50,000 Units by | | 0 | | | Activ | | (VITAMIN D-2) 50,000 | mouth Once a week. | | | | | e | | units capsule | | | | | | | + + + +---------+------+------+-------+ | glipiZIDE | Take 10 mg by mouth | | 0 | | | Activ | | (GLUCOTROL XL) 10 mg | daily (with | | | | | e | | ER tablet | breakfast). | | | | | | + + + +---------+------+------+-------+ | lisinopril | Take 40 mg by mouth | | 0 | | | Activ | | (PRINIVIL,ZESTRIL) | Daily. | | | | | e | | 40 MG tablet | | | | | | | + + + +---------+------+------+-------+ | sildenafil | Take 40 mg by mouth | | 0 | | | Activ | | (REVATIO) 20 mg | as needed (60 | | | | | e | | tablet | minutes prior to | | | | | | | | sexual activity if | | | | | | | | needed). | | | | | | + + + +---------+------+------+-------+ | ibuprofen (ADVIL, | Take 600 mg by mouth | | 0 | 05/2 | | Activ | | MOTRIN) 200 mg | 2 times daily. | | | 8/20 | | e | | tablet | | | | 19 | | | + + + +---------+------+------+-------+ | LANTUS SOLOSTAR | Inject 30 Units | | 0 | 06/2 | | Activ | | 100 UNIT/ML | under the skin | | | 7/20 | | e | | injection (pen) | nightly as needed. | | | 19 | | | + + + +---------+------+------+-------+ | labetalol | Take 1 tablet by | 60 | 11 | 08/1 | | Activ | | (NORMODYNE) 100 mg | mouth 2 times daily. | tablet | | 3/20 | | e | | tablet | | | | 19 | | | + + + +---------+------+------+-------+ | Blood Pressure | 1 each by Does not | 1 each | 0 | 08/1 | | Activ | | Monitor KIT | apply route Daily. | | | 3/20 | | e | | | | | | 19 | | | + + + +---------+------+------+-------+ | | Take 2 tablets by | | 0 | | | Activ | | SITagliptin-metFORMI | mouth Daily. | | | | | e | | N (SUSANA) 50-1,000 | | | | | | | | mg per tablet | | | | | | | + + + +---------+------+------+-------+ Active Problems + + + | Problem | Noted Date | + + + | CKD (chronic kidney disease) stage 2, GFR 60-89 ml/min | 02/28/2019 | + + + | Type 2 diabetes mellitus with stage 2 chronic kidney disease, | 02/28/2019 | | without long-term current use of insulin | | + + + | Proteinuria | 02/28/2019 | + + + | Essential hypertension | 02/28/2019 | + + + | Hyperlipidemia | 02/28/2019 | + + + | Tobacco use | 02/28/2019 | + + + Family History + + +------+ + | Medical History | Relation | Name | Comments | + + +------+ + | Diabetes | Father | | | + + +------+ + | Kidney disease | Father | | on dialysis | + + +------+ + + +------+--------+ + | Relation | Name | Status | Comments | + +------+--------+ + | Brother | | Alive | | + +------+--------+ + | Father | | Alive | | + +------+--------+ + | Mother | | Alive | | + +------+--------+ + | Sister | | Alive | | + +------+--------+ + Social History + + + +--------+ [...] recent travel history available. | + + Last Filed Vital Signs + + + [...] | | + + + + + Plan of Treatment +--------+---------+ + + + | Date | Type | Specialty | Care Team | Description | +--------+---------+ + + + | 01/08/ | Office | Nephrology | Gilma Helms, | | | 2019 | Visit | | [address] | | | | | | [address] [place] | | | | | | [place] [address] | | | | | | [phone] | | | | | | | | +--------+---------+ + + + + + + + + | Health Maintenance | Due Date | Last Done | Comments | + + + + + | Vaccine: | | | | | Pneumococcal 19-64 | 9 | | | | (1 of 1 - PPSV23) | | | | + + + + + | Diabetic Eye Exam | | | | | | 1 | | | + + + + + | Diabetic Foot Exam | | | | | | 1 | | | + + + + + | Hemoglobin A1c | | 07/15/2018 | | | Screening | 9 | | | + + + + + | Vaccine: Influenza | | 08/03/2018, 04/28/2017, | | | (Season Ended) | 0 | 04/20/2013, Additional history | | | | | exists | | + + + + + | Vaccine: | | 12/31/2011 | | | Dtap/Tdap/Td (2 - | 2 | | | | Td) | | | | + + + + + Results Not on filefrom Last 3 Months Insurance + +--------+ +--------+-------+---------+--------+ | Payer | Benefi | Subscriber | Effect | Phone | Address | Type | | | t Plan | ID | alejandro | | | | | | / | | Dates | | | | | | Group | | | | | | + +--------+ +--------+-------+---------+--------+ | BCBS | BCBS | [id number] | 07/19/19 | | | PPO | | | FEDERA | | 16-Pre | | | | | | L FEP | | sent | | | | + +--------+ +--------+-------+---------+--------+ | [facility] | IHS | [id number] | | | | Indemn | | SERVICE | YELLOW | | 019-Pr | | | ity | | | [place] | | esent | | | | + +--------+ +--------+-------+---------+--------+ + +--------+ +--------+ + + | Guarantor Name | Accoun | Relation to | Date | Phone | Billing Address | | | t Type | Patient | of | | | | | | | | | | + +--------+ +--------+ + + | Jaxson Glaloway | Person | Self | [birth year] | [address] | | | al/Fam | | 1975 | [phone] | [place] [address] | | | hattie | | | 6 (Home) | | | | | | | [phone] | | | | | | | 4 (Work) | | + +--------+ +--------+ + + Advance Directives + + + + + | Type | Date Recorded | Patient | Explanation | | | | Director Of Student Financial Aid | | + + + + + | Power of | | | | | President/[employer] | | | | + + + + + | Advance | | | | | Directive | | | | + + + + +
--- OUTSIDE RECORDS SUMMARY | ~2019-12-18 | XMS | Encounter Summary ---
Demographics + + + | Address | [address] | | | [place] [address] | + + + | Home Phone | | + + + | Preferred Language | Unknown | + + + | Marital Status | | + + + | Episcopal Affiliation | Unknown | + + + | Race | Unknown | + + + | Ethnic Group | Unknown | + + + Author + + + | Author | [facility] | | | and [place] | + + + | Organization | [facility] | | | and [place] | + + + | Address | Unknown | + + + | Phone | Unavailable | + + + Support + + + + + | Name | Relationship | Address | Phone | + + + + + | Zofia Galloway | ECON | [address] | | | | | [place] | | | | | [address] | | + + + + + | Bernarda Galloway | ECON | Unknown | | + + + + + Care Team Providers + +------+ + | Care Ignition Specialist Name | Role | Phone | + [...] NEPHROLOGY [address] | MD [address] | | | | | [address] | [address] [place] | | | | | [place], [place] | [place] [address] | | | | | [address] | [phone] | | | | | [phone] | | | +--------+ + + + [...] | | | | | | [place] [address] | | | | | | [phone] | | | | | | | [...] documented in this encounter Results External Lab: Vitamin D, 25-Hydroxy (02/22/2019) + +-------+ + + + | Component | Value | Ref Range | Performed | Pathologist | | | | | At | Signature | + +-------+ + + + | Vitamin D, | 33.8 | | | | | 25-Hydroxy, | | | | | | External | | | | | + +-------+ + + + + + | Specimen | + + | Blood | + + documented in this encounter Visit Diagnoses Not on filedocumented in this encounter"
[~2019-12-18 15:01] MED LIST changes: +VITAMIN D21250 MCG PO; -VITAMIN D250000 UNIT PO
--- NOTE | 2019-12-18 16:00 | NUR ---
PT ARRIVED TO FLOOR FOR OUTPATIENT ADMINISSION. 20G IV STARTED IN LEFT FOREARM. LR AT 125 STARTED. PT REPORTS PAIN 09/25. LABS DRAWN. CALL LIGHT IN REACH.
[2019-12-18] MEDS ORDERED: JANUMET XR 50-1 EAC1 PO (16:06)
[2019-12-18] MEDS ORDERED: LABETALOL HCL100 MG PO (16:09)
--- NOTE | 2019-12-18 17:39 | NUR ---
ROUNDED WITH DR SILVEIRA. PLAN OF CARE DISCUSSED. QUESTIONS ANSWERED.
--- NOTE | 2019-12-18 17:59 | NUR ---
PATIENT UP TO BATHROOM AND BACK TO BED, IND. SURGICAL WIPE DOWN DONE. NEW GOWN PROVIDED. CALL LIGHT IN REACH. NO FURTHER NEEDS AT THIS TIME.
[2019-12-18] MEDS ORDERED: LANTUS SOL100 UNIT/1 SUB-Q (18:10)
[2019-12-18] MEDS ORDERED: LIPITOR20 MG PO (18:30)
--- NOTE | 2019-12-18 19:26 | NUR ---
pt AWAKE, IN BED. FACER OPERATOR IN ROOM ASSESSING pt. pt REMOVING DENTURES. IV ANTIBIOTIC INFUSING WNL ORDERED. CALL LIGHT IN REACH.
--- NOTE | 2019-12-18 19:48 | NUR ---
pt OFF FLOOR AT THIS TIME WITH DAWSON LOZADA. IV LR INFUSING WNL.
--- NOTE | 2019-12-18 20:50 | NUR ---
12/18/192049 Jillian Higgins 2041: PT ARRIVES TO PACU SLEEPY/SNORING. SPINAL IS AT T10
--- NOTE | 2019-12-18 22:03 | NUR ---
pt BACK FROM OR, ASSESSMENT COMPLETE. DENIES PAIN, DENIES NAUSEA. PO FLUIDS, FOOD PROVIDED. NO DRAINAGE NOTED ON GAUZE. IV ANTIBIOTIC INFUSING WNL ORDERED. CALL LIGHT IN REACH. HOME MEDICATIONS TO SOUND MIXER FOR ROD WELDER TO PLACE IN SAFE. SCDS ON.
--- NOTE | 2019-12-18 23:01 | NUR ---
POST OP VS COMPLETED, PT ON PHONE, DENIES PAIN. STATES HE IS "STILL NUMB". ATE 100% SANDWICH BOX PROVIDED. CALL LIGHT WITHIN REACH.
--- NOTE | 2019-12-19 | NUR ---
POST OP VSS. pt SLEEPING, AWAKENS TO VOICE, SPO2 96% UPON AWAKENING ON RA. pt DENIES PAIN. REQUESTING SANDWICH BOX, CHIPS. FLOAT SURVEYOR NOTIFIED.
--- NOTE | 2019-12-19 01:22 | NUR ---
pt ABLE TO STAND, AMBULATE TO RESTROOM FOR 225 ML VOID AND BACK TO BED. MIN SS DRAINAGE NOTED FROM SCROTAL AREA. DRAWSHEET, CHUX CHANGED. IVF INFUSING WNL ORDERED. pt RATES PAIN 3/10 IN SCROTUM, PRN TORADOL ADMINISTERED. CALL LIGHT IN REACH.
--- NOTE | 2019-12-19 02:41 | NUR ---
CHECKED ON pt. APPEARS TO BE SLEEPING, SNORING, EYES CLOSED, BREATHING UNLABORED. LIGHTS OFF IN ROOM. CALL LIGHT IN REACH.
--- NOTE | 2019-12-19 04:45 | NUR ---
CALL LIGHT ANSWERED. SBA TO RESTROOM FOR VOID AND BACK TO BED. pt RATES PAIN 4-5/10 IN SCROTUM, PRN PAIN MEDIATION ADMINISTERED. ASSESSMENT COMPLETE. SS DRAINAGE FROM SCROTUM ON GAUZE, ABD PAD IN PLACE. IV ANTIBIOTIC INFUSING WNL ORDERED. GAUZE AT BEDSIDE FOR DRESSING CHANGE TODAY. CALL LIGHT IN REACH. VSS.
--- NOTE | 2019-12-19 06:29 | NUR ---
pt OUT OF BED, SBA. QS VOIDS. SMALL AMT SS DRAINAGE FROM SCROTAL AREA. GAUZE IN PLACE. GAUZE FLUFF AT BEDSIDE FOR DRESSING CHANGE TODAY. VSS. IVF INFUSING WNL THROUGHOUT SHIFT ORDERED. TOLERATING 60 G CARB DIET, NO NAUSEA REPORTED. PRN PO PAIN MEDICATION FOR PAIN CONTROL. USING CALL LIGHT APPROPRIATELY.
--- NOTE | 2019-12-19 07:50 | NUR ---
REPORT RECIEVED. PT LYING IN BED. DENEIS PAIN, CALL LIGHT IN REACH. BREAKFAST ORDERED.
--- NOTE | 2019-12-19 08:47 | HP ---
[facility] [address], [place] [address] Signed ADMISSION DATE: 12/18/2019 REASON FOR ADMISSION: Left scrotal soft tissue infection with insulin-dependent diabetes mellitus. HISTORY OF PRESENT ILLNESS: This morbidly obese 44-year-old [place] man is a patient of DEEJAY Marx from [facility]. I was called this afternoon by Mr. Hull describing the patient as having swelling and obvious infection of the left hemiscrotum. Edema, bogginess and drainage were noted. The patient was noted to be diabetic and I recommended direct admission to the hospital for further evaluation and likely debridement. He began having symptoms last week on (today is Wednesday), which included swelling and erythema and the left hemiscrotum "3 times the size is it was now." He knows of no trauma to the area. No incision or drainage or other intervention to the left hemiscrotum. The patient has never had a scrotal intervention or any perineal or scrotal infection in the past. Of special note, he began an unknown identity antibiotic about 2 days ago that was left over from his grandmothers treatment in the past. He does not know the antibiotic name but knows " it was supposed to be really strong." PAST MEDICAL HISTORY: Does include diabetes mellitus as well as hypertension as well as obesity. CURRENT MEDICATIONS: For diabetes include glipizide, Janumet, and Lantus insulin. He additionally takes labetalol and aspirin. ALLERGIES: He has no known drug allergies. He denies any fever or chills. He said there was some drainage spontaneously yesterday, but persistent pain and symptoms, which prompted his evaluation at [facility] today. SOCIAL HISTORY: He is and has 5 children. 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. REVIEW OF SYSTEMS: Electronically Signed By: OMID SILVEIRA MD 12/19/19 0847 PATIENT NAME: STEVE TORRES HISTORY AND PHYSICAL DATE OF : 71 REPORT #: [id number] PHYSICIAN: OMID SILVEIRA MD PCP: [facility] REPORT IS CONFIDENTIAL AND NOT TO BE RELEASED WITHOUT AUTHORIZATION [facility] [address], [place] [address] Signed He denies any shortness of breath or chest pain. He has had no dysphagia or dysuria. Denies any hematemesis or blood per rectum. PHYSICAL EXAMINATION: GENERAL: This is a large [place] man, who does not look systemically toxic at this time. VITAL SIGNS: Temperature is 99, pulse is 69, respirations 18, blood pressure 153/92, O2 saturation on room air is 99%. He weighs 137 kg and is 2.59 m2, BMI 38.8. HEENT: Mucous membranes are slightly dry. NECK: Trachea is midline. CHEST: Shows normal respiratory excursion without tachypnea. HEART: Regular without murmur. ABDOMEN: Obese, but soft. GENITOURINARY: Examination of the genitalia shows edema and swelling and distortion of the left hemiscrotum. Palpation reveals no abscess per se. There are 2 defects in the left hemiscrotum, one clearly extending into the scrotal space. The other with necrotic nonruptured and non-open skin, approximately a centimeter in size. The right hemiscrotum and testicle are normal. The left testicle is normal. I detect no crepitus of the perineum proper or the groin area. EXTREMITIES: Show no clubbing, cyanosis, or edema. LABORATORY STUDIES: Performed show a white count of 12.2, hematocrit 36.3, platelets 303,000. Chem profile is essentially normal, though glucose is 289, calcium 8.2, phosphorus 2.3. Liver enzymes normal. Triglycerides 201. ASSESSMENT: The patient has left scrotal infection including soft tissue and possibly recently abscess with no underlying testicular problem that we are aware of. He is at particularly high risk given his obesity and his underlying diabetes for progression to Orlando's gangrene. He has been admitted and given intravenous fluids and begun on broad-spectrum antibiotic meropenem. I would recommend exam under anesthesia and drainage and/or debridement as appropriate of the left hemiscrotum. The risks of bleeding, infection, cosmetic deformity, and need for more extensive debridement and might currently be foreseeable was all reviewed in detail. I emphasized to him the serious nature of scrotal infection particularly in diabetics and he now understands more fully. He last had a donut and some coffee at approximately 2 p.m. it is now nearly 6 p.m. A regional anesthetic might be a reasonable choice under the circumstances. Electronically Signed By: OMID SILVEIRA MD 12/19/19 0847 PATIENT NAME: STEVE TORRES HISTORY AND PHYSICAL DATE OF : 71 REPORT #: [id number] PHYSICIAN: OMID SILVEIRA MD PCP: [facility] REPORT IS CONFIDENTIAL AND NOT TO BE RELEASED WITHOUT AUTHORIZATION [address] [address] Signed Omid Silveira MD JM/MODL /[id number] cc: DEEJAY Marx [facility] Copies: MISHA HULL [facility] ~ Electronically Signed By: OMID SILVEIRA MD 12/19/19 0847 PATIENT NAME: STEVE TORRES HISTORY AND PHYSICAL DATE OF : 71 REPORT #: [id number] PHYSICIAN: OMID SILVEIRA MD PCP: [facility] REPORT IS CONFIDENTIAL AND NOT TO BE RELEASED WITHOUT AUTHORIZATION
--- NOTE | 2019-12-19 08:47 | OR ---
[facility] [address] [place], [place] [address] Signed DATE OF OPERATION: 12/18/2019 SURGEON: Omid Silveira MD PREOPERATIVE DIAGNOSES: 1. Left scrotal soft tissue infection. 2. Morbid obesity. 3. Insulin-dependent diabetes mellitus. POSTOPERATIVE DIAGNOSES: 1. Residual left scrotal abscess. 2. Skin necrosis, left hemiscrotum. 3. Morbid obesity. 4. Diabetes mellitus. PROCEDURES PERFORMED: 1. Exam under anesthesia. 2. Drainage of residual left scrotal abscess fluid. 3. Debridement of necrotic skin of left scrotum including skin and subcutaneous tissue, and deep subdartos space. ANESTHESIA: Spinal with IV sedation; Javon Mitchell CRNA. INDICATIONS: A 44-year-old obese man, was referred by Misha Hull of the [facility] this afternoon today. The patient was found to have significant left scrotal edema, inflammation, drainage of purulence and what appeared to be spontaneous necessitation of a left scrotal abscess. The patient says he has had problems since (today is Wednesday) at which time the left hemiscrotum was 3 times as large as now, but egress of purulent material was noted spontaneously. He has complicating factors of morbid obesity and insulin-dependent diabetes mellitus. He has been admitted directly to the hospital, given broad-spectrum antibiotic meropenem, intravenous fluid resuscitation and is to now undergo exam under anesthesia, debridement of necrotic skin as necessary, drainage of abscess and so on. He understands risks of bleeding, infection, possible need for extensive thick excision of soft tissue with necrotic and other unforeseen complications. Understanding this, he wishes to proceed. Electronically Signed By: OMID SILVEIRA MD 12/19/19 0847 PATIENT NAME: STEVE TORRES OPERATIVE REPORT DATE OF : 71 REPORT #: [id number] PHYSICIAN: OMID SILVEIRA MD PCP: [facility] REPORT IS CONFIDENTIAL AND NOT TO BE RELEASED WITHOUT AUTHORIZATION [facility] [address] [place], [place] [address] Signed FINDINGS: Indeed there was residual undrained purulence of the left hemiscrotum. It was not as much as expected. There is a space over the testicle proper well below the dartos muscle, which had some necrotic tissue, which was debrided. The skin was debrided in one of the areas of spontaneous necessitation. Both previous defects were freshened with saucerization. The yellow vessel loop was placed bridging the two areas after copious irrigation was undertaken. There was no sign of extension of the necrotic process to the perianal tissue or the groin area. DESCRIPTION OF PROCEDURE: The patient was brought to the operating room and given a spinal anesthetic, and placed in the supine position with legs elevated in stirrups. Photographs were taken of the scrotum in a pathologic process. Betadine solution was then used for preparation of the genitalia and the perineum. Pinkfin elevators were used to elevate the legs in the safe position. Once sterile draping was accomplished, manipulation of the left hemiscrotum was undertaken showing edematous and boggy skin, but no sign of crepitus proper. The one area that had spontaneous drainage had necrotic edges, the other had a necrotic site, which was excised with a #15 blade. Egress of purulent material was noted from this area. Gram stain and cultures were obtained for both aerobes and anaerobes. Further debridement was undertaken widely and deeply. The dense covering over the left testicle had some necrotic debris, which was debrided sharply as well. Debridement was taken back to bleeding tissue. Cautery was used for hemostasis. Copious irrigation was undertaken with saline solution. The yellow vessel loop was used to bridge both cut areas of the scrotum and tied for future drainage. Once hemostasis was assured, each incision site was packed with plain gauze, gauze fluffs were applied as was a supportive dressing. The legs were returned to neutral position. He was ultimately allowed to emerge from sedation and transferred to recovery room in good condition. Blood loss was less than 20 mL. Sponge, needle, and instrument counts were reported as correct x3. MD ARELIS Puente/MODL /[id number] Electronically Signed By: OMID SILVEIRA MD 12/19/19 0847 PATIENT NAME: STEVE TORRES OPERATIVE REPORT DATE OF : 71 REPORT #: [id number] PHYSICIAN: OMID SILVEIRA MD PCP: [facility] REPORT IS CONFIDENTIAL AND NOT TO BE RELEASED WITHOUT AUTHORIZATION [address] [address] Signed cc: DEEJAY Marx Copies: MISHA HULL ~ Electronically Signed By: OMID SILVEIRA MD 12/19/19 0847 PATIENT NAME: STEVE TORRES OPERATIVE REPORT DATE OF : 71 REPORT #: [id number] PHYSICIAN: OMID SILVEIRA MD PCP: [facility] REPORT IS CONFIDENTIAL AND NOT TO BE RELEASED WITHOUT AUTHORIZATION
--- NOTE | 2019-12-19 09:29 | NUR ---
MED REC COMPLETE
--- NOTE | 2019-12-19 10:57 | NUR ---
PATIENT IN BED WATCHING TV. PATIENT ASKING FOR PAIN MEDS, RN NOTIFIED. CALL LIGHT IN REACH. NO FURTHER NEEDS AT THIS TIME.
--- NOTE | 2019-12-19 11:00 | NUR ---
Spoke with Jaxson. He plans on dc today. LIves with and 5 children. Denies needs. 0 DME. LIves in 1 story house with 3 steps.
--- NOTE | 2019-12-19 11:23 | NUR ---
REPORTING 6/10 PAIN. ZACH ADMINSITERED.
--- NOTE | 2019-12-19 12:13 | NUR ---
PT OUT AMBULATING HALLS. PAIN WELL CONTROLLED. SERSANG DRAINAGE FROM LEFT SCROTAL SITE.
--- NOTE | 2019-12-19 13:16 | NUR ---
LANEY SILVEIRA. DISCHARGE PLAN DISCUSSED.
[2019-12-19] MEDS ORDERED: METRONIDAZOLE250 MG PO (13:24)
[2019-12-19] MEDS ORDERED: IBUPROFEN600 MG PO (13:24)
[2019-12-19] MEDS ORDERED: CIPROFLOXACIN500 MG PO (13:24)
[2019-12-19] MEDS ORDERED: HYDROCODON-ACE1 EA11 PO (13:25)
[2019-12-19] MEDS ORDERED: TYLENOL EXTRA500 MG PO (13:25)
--- NOTE | 2019-12-19 15:13 | NUR ---
DISCHARGE INSTRUCTIONS PROVIDED INCLUDING, S/SX OF INFECTION TO WATCH FOR. NOT TO DRIVE WHILE TAKING NARCOTICS, DAILY SITZ BATH INSTRUCTIONS. ALL QUESTIONS ANSWERED. VITALS TAKEN AND STABLE. IV DC'D AND WNL. FOLLOW UP APPOINTMENT DISCUSSED.
--- NOTE | 2019-12-19 15:24 | NUR ---
LOGAN KUMARI FROM [facility] CALLED FOR OVER THE PHONE MEDICATION ORDERS D/T NOT BEING ABLE TO RECEIVED ELECTRONIC MEDICATION ORDERS. VERBAL ORDERS READ WRITTEN BELLOW. CIPROFLOXACIN HCL Dose:500 MILLIGRAM ORAL, TWO TIMES DAILY Qty: 14 (CIPROFLOXACIN HCL) Refills: 0 500 MG TABLET METRONIDAZOLE Dose:250 MILLIGRAM ORAL, 3 TIMES DAILY WITH Qty: 21 (METRONIDAZOLE) 250 MG TABLET MEALS Refills: 0 IBUPROFEN Dose: 600 MILLIGRAM ORAL, Q6H as needed for Qty: 30 (IBUPROFEN) PAIN-MOD SEVERE Refills: 1 HYDROCODONE BIT/ Dose: ORAL, EVERY 6 HOURS Qty: 10 ACETAMINOPHEN See NEEDED as needed for Refills: 0 (HYDROCODON- Instructions SEVERE PAIN ACETAMINOPH 7.5-325) 1 TO 2 TABS (PATIENT WITH WRITTEN PRESCRIPTION) ACETAMINOPHEN Dose: 1,000 MILLIGRAMS ORAL, EVERY 6 HOURS Qty: 30 (TYLENOL EXTRA NEEDED as needed for Refills: 0 STRENGTH) 500 MG MILLIGRAM PAIN 0-1 TABLET
== END 2019-12-19 14:15 | disposition home or self-care (01) | DRG 718 ==
LOC: MS 15:01
PROVIDERS: ADMIT Surgery
PROC: 0V950ZZ Drainage of Scrotum, Open Approach (ICD-10-PCS; principal; 2019-12-18 20:00)
DX: N49.2 Inflammatory disorders of scrotum (principal); N50.89 Other specified disorders of the male genital organs; E66.01 Morbid (severe) obesity due to excess calories; E11.9 Type 2 diabetes mellitus without complications; I10 Essential (primary) hypertension; Z20.828 Contact with and (suspected) exposure to other viral communicable diseases; Z68.38 Body mass index [BMI] 38.0-38.9, adult; Z79.899 Other long term (current) drug therapy; Z79.82 Long term (current) use of aspirin; Z79.4 Long term (current) use of insulin
CPT/HCPCS: 00920; 36415; 80048; 80053; 82247; 82465; 83615; 84100; 84478; 84550; 85025; 94760; A9270; J1815; J1885; J2001; J2185; J2250; J2405; J2704; J7121; U0002

== ENCOUNTER 2022-01-12 08:13 | Emergency (ER) | payer BC, OTHER ==
[~2022-01-12] VITALS: Ht 188 cm; Wt 137.0 kg
[~2022-01-12 08:13] MED LIST changes: +CIPROFLOXACIN500 MG PO; +HYDROCODON-ACE1 EA11 PO; +IBUPROFEN600 MG PO; +JANUMET XR 50-1 EAC1 PO; +LABETALOL HCL100 MG PO; +LANTUS SOL100 UNIT/1 SUB-Q; +METRONIDAZOLE250 MG PO; +TYLENOL EXTRA500 MG PO
[2022-01-12] MEDS ORDERED: PREDNISONE20 MG PO (11:02)
[2022-01-12] MEDS ORDERED: VALTREX1000 MG PO (11:02)
== END 2022-01-12 11:35 | disposition home or self-care (01) ==
LOC: ED 08:13
DX: G51.0 Bell's palsy (principal); R51.9 Headache, unspecified; I10 Essential (primary) hypertension; E11.9 Type 2 diabetes mellitus without complications; F17.200 Nicotine dependence, unspecified, uncomplicated; Z79.4 Long term (current) use of insulin; Z79.82 Long term (current) use of aspirin
CPT/HCPCS: 36415; 70496; 70498; 80053; 85025; 85651; 86140; Q9967